=== PATIENT | female | born 1990 | race African-American/Black ===

== ENCOUNTER 2018-12-13 17:10 | Emergency (ER) | payer OTHER, SELFPAY ==
[2018-12-13 17:13] VITALS: BP 118/78; PULSE 99; RESP 16; TEMP 37.1; O2SAT 98; BMI 20.5
--- NOTE | 2018-12-13 17:31 | RAD_ITS ---
STUDY: X-RAY - MANDIBLE (COMPLETE) REASON FOR EXAM: Female, 28 years old. Right anterior chin laceration TECHNIQUE: 5 view(s) of the mandible were obtained. COMPARISON: None. FINDINGS: Normal mandible. Normal visualized right temporomandibular joint. Normal visualized left temporomandibular joint. The remaining visualized osseous structures are normal. The soft tissue structures are unremarkable. RAD/Mandible Min 4 Views IMPRESSION: No acute osseous injury is evident. Electronically Signed: Balaji Regalado MD at 18:23 EDT Tel , Service support ,
--- NOTE | 2018-12-13 17:35 | ED.DCSUM_ITS ---
- ER Visit Summary Date of Service: 12/13/18 Chief Complaint: Chin laceration History of Present Illness: The patient is a 28 F presenting with chin laceration. Patient states she was skydiving. When she was landing she ran into a metal wire. Her chin hit the wire. She states she then landed without difficulty. She had no loss of consciousness. Her last tetanus is unknown. No other injuries. Physical Examination: Vitals are stable. Patient is afebrile. Alert no acute distress. HEENT exam 4 cm laceration of the right lower chin. Mild tenderness of the right mandible. Midface is stable. Neck is supple. Lungs are clear and equal bilaterally. Heart is regular rate and rhythm. Extremities are unremarkable. Skin is warm and dry. No focal neurologic deficit. Remainder of exam is unremarkable. Emergency Department Course and Treatment: Patient was given tetanus IM. Mandible x-ray shows no acute process. Wound was irrigated with saline. Anesthetized with lidocaine. 6, 6-0 simple sutures were placed. Patient tolerated this well. Advised wound care instructions. Advised to follow-up with primary care physician. Disposition: Discharge home Impression: Facial laceration, laceration repair This note was generated with [employer] dictation software. It may contain incorrect words, spelling, and punctuation that were not noted in review of the chart prior to signing ED Disposition - Plan for ED Patient: Instructions: ED Laceration Facial Sutr Tape Referrals: [facility]am,Out of [Primary Care Provider] -
[2018-12-13] MEDS: Diphth,Pertuss(Acell),Tet Vac 0.5 ML Vial IM (17:42)
--- NOTE | 2018-12-13 19:30 | ED.DEP ---
ED Disposition - Plan for ED Patient: Instructions: ED Laceration Facial Sutr Tape Referrals: [facility],Out of [Primary Care Provider] -
[2018-12-13 19:43] VITALS: BP 121/82; PULSE 82; RESP 18; O2SAT 100
== END 2018-12-13 19:45 | disposition home or self-care (01) ==
PROVIDERS: Emergency Provider Emergency Medicine
DX: S01.81XA Laceration without foreign body of other part of head, initial encounter (principal); W22.8XXA Striking against or struck by other objects, initial encounter; Y93.89 Activity, other specified; Y92.9 Unspecified place or not applicable; Y99.8 Other external cause status
CPT/HCPCS: 12013; 70110; 90471; 90715; 99283